=== PATIENT | female | born 1975 | race Caucasian/White ===

== ENCOUNTER 2018-09-15 10:38 | Emergency (ER) | payer MEDICAID ==
[~2018-09-15] VITALS: Ht 152.4 cm; Wt 77.1 kg
[2018-09-15 10:50] VITALS: BP 111/79
--- NOTE | 2018-09-15 10:50 | NUR ---
PATIENT AMBULATED TO ER BED 9.
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
--- NOTE | 2018-09-15 11:20 | NUR ---
DR. WHITFIELD AT BEDSIDE EVALUATING PATIENT.
[2018-09-15] MEDS ORDERED: KETOROLAC 60 MG/2 ML VIAL IM ONE (11:45)
--- NOTE | 2018-09-15 11:47 | NUR ---
PATIENT TAKEN FOR XRAY VIA WHEELCHAIR AT THIS TIME.
--- NOTE | 2018-09-15 11:56 | NUR ---
PATIENT RETURNED FROM XRAY AT THIS TIME.
[2018-09-15 13:58] VITALS: BP 108/72
--- NOTE | 2018-09-15 13:59 | NUR ---
Patient discharged with v/s stable. Written and verbal after care instructions given and explained. Patient alert, oriented and verbalized understanding of instructions. Ambulatory with steady gait. All questions addressed prior to discharge. ID band removed. Patient advised to follow up with PMD. Rx of IBU given. Patient educated on indication of medication including possible reaction and side effects. Opportunity to ask questions provided and answered.
== END 2018-09-15 13:59 | disposition home or self-care (01) ==
LOC: MED 10:38
DX: S39.012A Strain of muscle, fascia and tendon of lower back, initial encounter (principal); R11.2 Nausea with vomiting, unspecified; R19.7 Diarrhea, unspecified; R10.30 Lower abdominal pain, unspecified; V89.2XXA Person injured in unspecified motor-vehicle accident, traffic, initial encounter; Y93.89 Activity, other specified; Y92.488 Other paved roadways as the place of occurrence of the external cause; Y99.8 Other external cause status
CPT/HCPCS: 72100; 74022; 81002; 81025; 96372; 99283; J1885

== ENCOUNTER 2019-04-23 11:02 | Emergency (ER) | payer MEDICAID ==
[~2019-04-23] VITALS: Ht 152.4 cm; Wt 80.7 kg
[2019-04-23 11:10] VITALS: BP 130/76
--- NOTE | 2019-04-23 11:13 | NUR ---
PT AMBULATED TO ER BED8
--- NOTE | 2019-04-23 11:45 | NUR ---
C/O BODY ACHES, EPIGASTRIC PAIN, N/V/D AND CHILLS STARTING LAST NIGHT. PT IS AFEBRILE AT A THIS TIME. PT REPORTS NOT RECEIVING THE FLU VACCINES AT THIS TIME. ABD IS SOFT/FLAT/NON TENDER, BOWEL SOUNDS PRESENT X4, LBM TODAY: DIARRHEA PER PT. BED IN LOW POSITION, SIDE RAIL UP X1
[2019-04-23] MEDS ORDERED: DICYCLOMINE HCL LIQUID 20 MG, ALUMINUM HYD/MAG/SIMETHICONE 30 ML, LIDOCAINE VISCOUS 2% ... PO ONE ×3 (12:10)
--- NOTE | 2019-04-23 12:10 | NUR ---
ERMD AT BEDSIDE
[2019-04-23] MEDS ORDERED: DICYCLOMINE HCL LIQUID 10 MG/5 ML UDC ONE (12:43)
[2019-04-23] MEDS ORDERED: LIDOCAINE VISCOUS 2% 20 ML UDC ONE (12:43)
[2019-04-23] MEDS ORDERED: ALUMINUM HYD/MAG/SIMETHICONE 30 ML UDC ONE (12:43)
[2019-04-23 13:55] VITALS: BP 116/73
--- NOTE | 2019-04-23 14:02 | NUR ---
Patient discharged with v/s stable. Written and verbal after care instructions given and explained. Patient alert, oriented and verbalized understanding of instructions. Ambulatory with steady gait. All questions addressed prior to discharge. ID band removed. Patient advised to follow up with PMD. Rx of IBU,ZOFRAN,IMMODIUM given. Patient educated on indication of medication including possible reaction and side effects. Opportunity to ask questions provided and answered.
== END 2019-04-23 14:02 | disposition home or self-care (01) ==
LOC: MED 11:02
DX: R10.13 Epigastric pain (principal); R11.2 Nausea with vomiting, unspecified; R19.7 Diarrhea, unspecified
CPT/HCPCS: 81002; 81025; 99283

== ENCOUNTER 2019-05-21 07:33 | Emergency (ER) | payer MEDICAID ==
[~2019-05-21] VITALS: Ht 152.4 cm; Wt 78.0 kg
[2019-05-21 07:37] VITALS: BP 151/88
--- NOTE | 2019-05-21 07:41 | NUR ---
PT. AMBULATED TO BED 4
--- NOTE | 2019-05-21 07:41 | NUR ---
DR. PEREZ BEDSIDE EVALUATING PATIENT
--- NOTE | 2019-05-21 07:44 | NUR ---
43 y/o female presents to er for medical clearance to return to work. pt states she had sore throat 2 days ago and coughed one time while at work and they want her to be seen before returning. denies pain at this time. denies n/v/d. denies sob. medhx: denies allergies: nka
[2019-05-21 07:48] VITALS: BP 151/88
--- NOTE | 2019-05-21 07:49 | NUR ---
Patient discharged with v/s stable. Written and verbal after care instructions given and explained. Patient verbalized understanding. Ambulatory with steady gait. All questions addressed prior to discharge. Advised to follow up with PMD.
== END 2019-05-21 07:49 | disposition home or self-care (01) ==
LOC: MED 07:33
DX: R03.0 Elevated blood-pressure reading, without diagnosis of hypertension (principal); J02.9 Acute pharyngitis, unspecified; R05 Cough
CPT/HCPCS: 99281

== ENCOUNTER 2019-06-30 21:18 | Emergency (ER) | payer MEDICAID ==
[~2019-06-30] VITALS: Ht 149.9 cm; Wt 74.8 kg
[2019-06-30 21:33] VITALS: BP 135/84
--- NOTE | 2019-06-30 21:39 | NUR ---
PT AMBULATED TO BED 07 WITH STEADYGAIT
--- NOTE | 2019-06-30 21:51 | NUR ---
43F PRESENT TO ED C/O BODY ACHE THAT STARTS FROM THE NECK ALL THE WAY DOWN TO BLE. REPORTS SORE THROAT, EAR PAIN, CHILLS, -COUGH, -FEVER. STATES TAKEN TYLENOL 250MG X1500, AND UNPRESCRPIBED PENICILLIN THAT PT'S MOTHER GAVE TO HER. PMHX: DENIES ALLX: DENIES NEGATIVE FOR COVID SCREENING. Addendum: 06/30/19 at 2154 by [facility] PT STATES STARTED X 1 WEEK
--- NOTE | 2019-06-30 21:58 | NUR ---
Dr. Lucio examining patient.
[2019-06-30] MEDS ORDERED: IBUPROFEN 600 MG TAB PO ONE (22:05)
--- NOTE | 2019-06-30 22:05 | NUR ---
PT UNABLE TO GIVE URINE AT THIS TIME, GAVE WATER AND CRANBERRY JUICE
--- NOTE | 2019-06-30 22:20 | NUR ---
URINE COLLECTED, NEG, DIP DONE AND RESULTS SHOWED TO MD PINK
[2019-06-30 22:29] VITALS: BP 135/84
== END 2019-06-30 22:29 | disposition home or self-care (01) ==
LOC: MED 21:18
DX: M79.10 Myalgia, unspecified site (principal)
CPT/HCPCS: 81002; 81025; 99282; 99283

== ENCOUNTER 2019-12-11 20:29 | Emergency (ER) | payer MEDICAID ==
[~2019-12-11] VITALS: Ht 152.4 cm; Wt 73.9 kg
[2019-12-11 20:35] VITALS: BP 136/89
--- NOTE | 2019-12-11 20:37 | NUR ---
To Ed bed 09
--- NOTE | 2019-12-11 20:40 | NUR ---
44 YO F BIB SELF FOR C/C OF 11/28 R NECK AND SHOULDER PAIN X5 DAYS. PT DENIES TAKING OTC MEDS, DENIES INURY OR TRAUMA. ROM INTACT, DENIES NUMBNESS AND TINGELING. RADIAL PULSES EQUAL AND REGULAR. BED LOCKED AND IN LOWEST POSITION. SIDE RAILS X1. MED HX: DENIES NO RX NKA
[2019-12-11] MEDS ORDERED: KETOROLAC 60 MG/2 ML VIAL IM ONE (20:50)
--- NOTE | 2019-12-11 21:20 | NUR ---
PTS PAIN NOW 07/29
[2019-12-11 21:32] VITALS: BP 136/89
--- NOTE | 2019-12-11 21:32 | NUR ---
Patient discharged with v/s stable. Written and verbal after care instructions given and explained. Patient alert, oriented and verbalized understanding of instructions. Ambulatory with steady gait. All questions addressed prior to discharge. ID band removed. Patient advised to follow up with PMD. Rx of MOTMARIA L JEFFERSAXEN given. Patient educated on indication of medication including possible reaction and side effects. Opportunity to ask questions provided and answered.
== END 2019-12-11 21:32 | disposition home or self-care (01) ==
LOC: MED 20:29
DX: M79.18 Myalgia, other site (principal)
CPT/HCPCS: 96372; 99283; J1885

== ENCOUNTER 2021-05-08 06:20 | Emergency (ER) | payer MEDICAID ==
[~2021-05-08] VITALS: Ht 152.4 cm; Wt 70.3 kg
[2021-05-08 06:22] VITALS: BP 148/76
--- NOTE | 2021-05-08 06:28 | NUR ---
patient ambulated to bed 9 with a steady gait
--- NOTE | 2021-05-08 06:35 | NUR ---
Dr. Joseph examining patient.
--- NOTE | 2021-05-08 06:37 | NUR ---
ER AT BEDSIDE
[2021-05-08] MEDS ORDERED: DICYCLOMINE HCL LIQUID 20 MG, ALUMINUM HYD/MAG/SIMETHICONE 30 ML, LIDOCAINE VISCOUS 2% ... PO ONE ×3 (06:45)
[2021-05-08] MEDS ORDERED: DICYCLOMINE HCL LIQUID 10 MG/5 ML UDC ONE (06:57)
[2021-05-08] MEDS ORDERED: ALUMINUM HYD/MAG/SIMETHICONE 30 ML UDC ONE (06:57)
--- NOTE | 2021-05-08 07:01 | NUR ---
X-Ray at bedside.
[2021-05-08 07:45] LABS: BILIRUBIN,URINE NEGATIVE (NEGATIVE); BLOOD, URINE TRACE-I (NEGATIVE); COLOR,URINE YELLOW (YELLOW); LEUKOCYTE ESTERASE ,URINE 1+ (NEGATIVE); NITRITE, URINE NEGATIVE (NEGATIVE); PH,URINE 7.5 (5.0-9.0); UGLUCOSE NEGATIVE (NEGATIVE)
[2021-05-08 07:55] LABS: APPEARANCE,URINE SLIGHTLY HAZY (CLEAR)
[2021-05-08 07:57] LABS: RBC,URINE 0-5 /HPF (0-5); WBC,URINE 0-5 /HPF (0-5)
[2021-05-08 08:47] LABS: BASOPHILS % (AUTO) 0.2 % (0.0-2.0); EOSINOPHILS # (AUTO) 0.1 K/uL (0-0.4); EOSINOPHILS % (AUTO) 0.6 % (0.0-4.0); HEMATOCRIT 38.2 % (36-48); LYMPHOCYTES # (AUTO) 0.7 K/uL (2.5-16.5); LYMPHOCYTES % (AUTO) 5.8 % (20.5-51.1); MEAN CORPUSCULAR HEMOGLOBIN 31 pg (27-31); MEAN CORPUSCULAR HGB CONC 34 g/dL (33-37); MEAN CORPUSCULAR VOLUME 91.2 fL (80-94); MONOCYTES # (AUTO) 0.6 K/uL (0.8-1.0); MONOCYTES % (AUTO) 4.9 % (1.7-9.3); NEUTROPHILS # (AUTO) 10.9 K/uL (1.8-7.7); NEUTROPHILS % (AUTO) 88.5 % (42.2-75.2); PLATELET COUNT (AUTO) 370 K/uL (140-450); RED BLOOD CELL COUNT(AUTO) 4.19 MIL/uL (4.20-5.40); RED CELL DISTRIBUTION WIDTH 13.3 % (11.6-13.7); WHITE BLOOD COUNT (AUTO) 12.3 K/uL (4.8-10.8)
[2021-05-08] MEDS ORDERED: CEPH-588 PO (08:54)
[2021-05-08] MEDS ORDERED: cephALEXin 500 MG CAP PO ONE (08:55)
[2021-05-08 09:08] LABS: ALBUMIN 3.7 g/dL (3.4-5.0); ANION GAP 10.7 (8-16); CARBON DIOXIDE 28.5 mmol/L (21-32); CREATININE 0.7 mg/dL (0.6-1.3); POTASSIUM 4.2 mmol/L (3.5-5.1); TOTAL BILIRUBIN 0.6 mg/dL (0.0-1.0)
[2021-05-08 09:29] VITALS: BP 148/76
--- NOTE | 2021-05-08 09:30 | NUR ---
Patient discharged with v/s stable. Written and verbal after care instructions given and explained. Patient alert, oriented and verbalized understanding of instructions. Ambulatory with steady gait. All questions addressed prior to discharge. ID band removed. Patient advised to follow up with PMD. Rx of keflex (sent) given. Patient educated on indication of medication including possible reaction and side effects. Opportunity to ask questions provided and answered. work note given
== END 2021-05-08 09:29 | disposition home or self-care (01) ==
LOC: MED 06:20
DX: N39.0 Urinary tract infection, site not specified (principal); Z79.899 Other long term (current) drug therapy
CPT/HCPCS: 36415; 74018; 80053; 81001; 81025; 82150; 83690; 84703; 85025; 87086; 99284; Q0092